=== PATIENT | male | born 1955 | race Caucasian/White ===

== ENCOUNTER 2022-12-20 07:32 | Outpatient (CLI) | payer MEDICARE | END 2022-12-20 07:33 | disposition home or self-care (01) | LOC: ULT 07:32 | PROVIDERS: ATTEND Family Medicine | DX: E06.9 Thyroiditis, unspecified (principal); I15.2 Hypertension secondary to endocrine disorders; E07.89 Other specified disorders of thyroid; Z79.899 Other long term (current) drug therapy | CPT/HCPCS: 76536 ==